=== PATIENT | female | born 1990 | race Caucasian/White ===

== ENCOUNTER 2018-08-25 17:10 | Emergency (ER) | payer MEDICAID ==
--- NOTE | 2018-08-25 17:23 | EDM.PDOC ---
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 Developed approximately 2 hours ago some pressure to the vagina region with increasing pain, decrease amount, and blood present with urination. She has a long history of UTIs but notes the current symptoms are quite severe in comparison to previous episodes. It is unclear she states where the blood is coming from. She states her last menstrual cycle was in June. She took a home test that came back positive. She has traveled from [place] to [place] to spend time with family and had no issues during her travel. She also complains some bilateral low back discomfort. There is no fever, nausea or vomiting as of today, diarrhea, or constipation. She has a history of STDs. She is currently in the office relationship. She's had to person via with no complications. She has been mildly nauseated with the thus has been taking Zofran are intermittent basis. She is on vitamins. Smokes 2 cigarettes a day. No recreational drug use. Denies any alcohol use. Abdominal Pain Score (Numeric/FACES): 7 - Related Data Allergies Allergy/AdvReac Type Severity Reaction Status Date / Time No Known Allergies Allergy Verified 08/25/18 17:26 Home Meds: Home Meds Ondansetron [Zofran ODT] 4 mg PO Q4H PRN 08/25/18 [History] Pnv No.121/Iron/Folic Acid [ Multivitamin Tablet] 1 tab PO DAILY [History] ED ROS GENERAL - Review of Systems Review Of Systems: ROS reveals no pertinent complaints other than HPI. ED EXAM - Physical Exam Exam: See Below Exam Limited By: No Limitations General Appearance: Alert, WD/WN, Mild Distress Ears: Hearing Grossly Normal Nose: Normal Inspection Throat/Mouth: Normal Voice, No Airway Compromise Head: Atraumatic, Normocephalic Neck: Normal Inspection, Supple Respiratory/Chest: No Respiratory Distress, Lungs Clear, Normal Breath Sounds, No Accessory Muscle Use Cardiovascular: Normal Peripheral Pulses, Regular Rate, Rhythm, No Murmur GI/Abdominal Exam: Normal Bowel Sounds, Soft, No Organomegaly, No Distention, Tender (suprapubic region), Other (No CVA tenderness bilateral. ) (Female) Exam: Normal Bimanual Exam, Normal External Exam, Normal Speculum Exam, Vaginal Discharge (thick creamy). No: Adnexal Mass (L), Adnexal Mass (R) , Adnexal Tenderness, Cervical Dilatation, Vaginal Bleeding, Vaginal Lesions Back Exam: Normal Inspection. No: CVA Tenderness (L), CVA Tenderness (R) Extremities: Normal Inspection Neurological: Alert, Oriented, CN II-XII Intact, Normal Cognition, No Motor/ Sensory Deficits Psychiatric: Normal Affect, Normal Mood Skin Exam: Warm, Dry, Intact, Normal Color Course - Vital Signs Last Recorded V/S: Last Vital Signs Temp 98.2 F 08/25/18 17: Pulse 95 08/25/18 17:19 Resp 19 08/25/18 17:19 BP 131/87 08/25/18 17:19 Pulse Ox 100 08/25/18 17:19 - Orders/Labs/Meds Orders: Active Orders 24 hr Category Date Time Status Peripheral IV Care [RC] . DIRECTED Care 08/25/18 17:25 Active CULTURE URINE [RM] Stat Lab 08/25/18 17:45 Results Peripheral IV Insertion Adult [OM.PC] Routine Oth 08/25/18 17:25 Ordered Labs: Laboratory Tests 08/25/18 08/25/18 08/25/18 Range/Units 17:35 17:35 17:35 WBC 17.94 H (3.98-10.04) K/mm3 RBC 4.46 (3.98-5.22) M/mm3 Hgb 14.2 (11.2-15.7) gm/L Hct 41.7 (34.1-44.9) % MCV 93.5 (79.4-94.8) fl MCH 31.8 (25.6-32.2) pg MCHC 34.1 (32.2-35.5) g/dl RDW Std Deviation 45.2 (36.4-46.3) fL Plt Count 392 H (182-369) K/mm3 MPV 9.2 L (9.4-12.3) fl Neutrophils % (Manual) 76 H (40-60) % Band Neutrophils % 0 (0-10) % Lymphocytes % (Manual) 12 L (20-40) % Atypical Lymphs % 0 % Monocytes % (Manual) 11 H (2-10) % Eosinophils % (Manual) 1 (0.7-5.8) % Basophils % (Manual) 0 L (0.1-1.2) Platelet Estimate Adequate Plt Morphology Comment Normal RBC Morph Comment Normal PT (9.5-12.1) SECONDS INR APTT (24-31) SECONDS Sodium 136 (136-145) mEq/L Potassium 3.7 (3.5-5.1) mEq/L Chloride 102 (98-107) mEq/L Carbon Dioxide 22 (21-32) mEq/L Anion Gap 15.7 H (5-15) BUN 8 (7-18) mg/dL Creatinine 0.7 (0.55-1.02) mg/dL Est Cr Clr Drug Dosing 98.98 mL/min Estimated GFR (MDRD) > 60 (>60) mL/min BUN/Creatinine Ratio 11.4 L (14-18) Glucose 95 (74-106) mg/dL Calcium 9.3 (8.5-10.1) mg/dL Total Bilirubin 0.4 (0.2-1.0) mg/dL AST 20 (15-37) U/L ALT 19 (14-59) U/L Alkaline Phosphatase 69 (46-116) U/L C-Reactive Protein (<1.0) mg/dL Total Protein 8.2 (6.4-8.2) g/dl Albumin 4.2 (3.4-5.0) g/dl Globulin 4.0 gm/dL Albumin/Globulin Ratio 1.1 (1-2) HCG, Quant 46109.0 mIU/mL Urine Color (Yellow) Urine Appearance (Clear) Urine pH (5.0-8.0) Ur Specific [place] (1.005-1.030) Urine Protein (Negative) Urine Glucose (UA) (Negative) Urine Ketones (Negative) Urine Occult Blood (Negative) Urine Nitrite (Negative) Urine Bilirubin (Negative) Urine Urobilinogen (0.2-1.0) Ur Leukocyte Esterase (Negative) Urine RBC (0-5) /hpf Urine WBC (0-5) /hpf Urine WBC Clumps (NOT SEEN) /hpf Ur Epithelial Cells (0-5) /hpf Amorphous Sediment (NOT SEEN) /hpf Urine Bacteria (FEW) /hpf Urine Mucus (FEW) /hpf C trachomatis DNA (PCR) N gonorrhoeae DNA (PCR) Blood Type O POSITIVE 08/25/18 08/25/18 08/25/18 Range/Units 17:35 17:35 17:45 WBC (3.98-10.04) K/mm3 RBC (3.98-5.22) M/mm3 Hgb (11.2-15.7) gm/L Hct (34.1-44.9) % MCV (79.4-94.8) fl MCH (25.6-32.2) pg MCHC (32.2-35.5) g/dl RDW Std Deviation (36.4-46.3) fL Plt Count (182-369) K/mm3 MPV (9.4-12.3) fl Neutrophils % (Manual) (40-60) % Band Neutrophils % (0-10) % Lymphocytes % (Manual) (20-40) % Atypical Lymphs % % Monocytes % (Manual) (2-10) % Eosinophils % (Manual) (0.7-5.8) % Basophils % (Manual) (0.1-1.2) Platelet Estimate Plt Morphology Comment RBC Morph Comment PT 10.4 (9.5-12.1) SECONDS INR 0.95 APTT 31 (24-31) SECONDS Sodium (136-145) mEq/L Potassium (3.5-5.1) mEq/L Chloride (98-107) mEq/L Carbon Dioxide (21-32) mEq/L Anion Gap (5-15) BUN (7-18) mg/dL Creatinine (0.55-1.02) mg/dL Est Cr Clr Drug Dosing mL/min Estimated GFR (MDRD) (>60) mL/min BUN/Creatinine Ratio (14-18) Glucose (74-106) mg/dL Calcium (8.5-10.1) mg/dL Total Bilirubin (0.2-1.0) mg/dL AST (15-37) U/L ALT (14-59) U/L Alkaline Phosphatase (46-116) U/L C-Reactive Protein < 0.2 (<1.0) mg/dL Total Protein (6.4-8.2) g/dl Albumin (3.4-5.0) g/dl Globulin gm/dL Albumin/Globulin Ratio (1-2) HCG, Quant mIU/mL Urine Color Red H (Yellow) Urine Appearance Turbid H (Clear) Urine pH 5.0 (5.0-8.0) Ur Specific [place] 1.015 (1.005-1.030) Urine Protein 3+ H (Negative) Urine Glucose (UA) 1+ H (Negative) Urine Ketones 1+ H (Negative) Urine Occult Blood 3+ H (Negative) Urine Nitrite Positive H (Negative) Urine Bilirubin 3+ H (Negative) Urine Urobilinogen >=8.0 H (0.2-1.0) Ur Leukocyte Esterase 3+ H (Negative) Urine RBC >100 H (0-5) /hpf Urine WBC 75-100 H (0-5) /hpf Urine WBC Clumps Few (NOT SEEN) /hpf Ur Epithelial Cells 0-5 (0-5) /hpf Amorphous Sediment Moderate H (NOT SEEN) /hpf Urine Bacteria Moderate H (FEW) /hpf Urine Mucus Not seen (FEW) /hpf C trachomatis DNA (PCR) N gonorrhoeae DNA (PCR) Blood Type 08/25/18 Range/Units 20:54 WBC (3.98-10.04) K/mm3 RBC (3.98-5.22) M/mm3 Hgb (11.2-15.7) gm/L Hct (34.1-44.9) % MCV (79.4-94.8) fl MCH (25.6-32.2) pg MCHC (32.2-35.5) g/dl RDW Std Deviation (36.4-46.3) fL Plt Count (182-369) K/mm3 MPV (9.4-12.3) fl Neutrophils % (Manual) (40-60) % Band Neutrophils % (0-10) % Lymphocytes % (Manual) (20-40) % Atypical Lymphs % % Monocytes % (Manual) (2-10) % Eosinophils % (Manual) (0.7-5.8) % Basophils % (Manual) (0.1-1.2) Platelet Estimate Plt Morphology Comment RBC Morph Comment PT (9.5-12.1) SECONDS INR APTT (24-31) SECONDS Sodium (136-145) mEq/L Potassium (3.5-5.1) mEq/L Chloride (98-107) mEq/L Carbon Dioxide (21-32) mEq/L Anion Gap (5-15) BUN (7-18) mg/dL Creatinine (0.55-1.02) mg/dL Est Cr Clr Drug Dosing mL/min Estimated GFR (MDRD) (>60) mL/min BUN/Creatinine Ratio (14-18) Glucose (74-106) mg/dL Calcium (8.5-10.1) mg/dL Total Bilirubin (0.2-1.0) mg/dL AST (15-37) U/L ALT (14-59) U/L Alkaline Phosphatase (46-116) U/L C-Reactive Protein (<1.0) mg/dL Total Protein (6.4-8.2) g/dl Albumin (3.4-5.0) g/dl Globulin gm/dL Albumin/Globulin Ratio (1-2) HCG, Quant mIU/mL Urine Color (Yellow) Urine Appearance (Clear) Urine pH (5.0-8.0) Ur Specific [place] (1.005-1.030) Urine Protein (Negative) Urine Glucose (UA) (Negative) Urine Ketones (Negative) Urine Occult Blood (Negative) Urine Nitrite (Negative) Urine Bilirubin (Negative) Urine Urobilinogen (0.2-1.0) Ur Leukocyte Esterase (Negative) Urine RBC (0-5) /hpf Urine WBC (0-5) /hpf Urine WBC Clumps (NOT SEEN) /hpf Ur Epithelial Cells (0-5) /hpf Amorphous Sediment (NOT SEEN) /hpf Urine Bacteria (FEW) /hpf Urine Mucus (FEW) /hpf C trachomatis DNA (PCR) Not detected N gonorrhoeae DNA (PCR) Not detected Blood Type Meds: Medications Discontinued Medications Generic Name Dose Route Start Last Admin Trade Name Freq PRN Reason Stop Dose Admin Hydromorphone HCl 0.25 mg 08/25/18 17:35 08/25/18 17:54 Dilaudid IVPUSH 08/25/18 17:36 0.25 mg ONETIME ONE Administration Sodium Chloride 1,000 mls @ 999 mls/hr 08/25/18 17:43 08/25/18 17:51 Normal Saline IV 08/25/18 18:43 999 mls/hr ONETIME ONE Administration Ceftriaxone Sodium 1 gm/ 100 mls @ 200 mls/hr 08/25/18 19:18 08/25/18 19:32 Sodium Chloride IV 08/25/18 19:47 200 mls/hr ONETIME ONE Administration Nitrofurantoin Macrocrystals 100 mg 08/25/18 19:18 08/25/18 19:32 Macrobid PO 08/25/18 19:19 100 mg ONETIME ONE Administration Nitrofurantoin Macrocrystals 100 mg 08/25/18 19:52 08/25/18 19:58 Macrobid PO 08/25/18 19:53 100 mg ONETIME ONE Administration Ondansetron HCl 4 mg 08/25/18 19:52 08/25/18 19:58 Zofran IVPUSH 08/25/18 19:53 4 mg ONETIME ONE Administration Phenazopyridine HCl 95 mg 08/25/18 17:36 08/25/18 17:54 Urinary Pain Relief PO 08/25/18 17:37 95 mg ONETIME ONE Administration Sodium Chloride 10 ml 08/25/18 17:25 08/25/18 17:54 Saline Flush FLUSH 10 ml ASDIRECTED PRN Administration Keep Vein Open - Re-Assessments/Exams Free Text/Narrative Re-Assessment/Exam: IV established with dilaudid 0.25mg IVP and pyridium 95mg PO. Initial labs will include: CBC, chem 14, hCG quantitative, coag studies, ABO/Rh type. In addition I discussed with the patient obtaining a vaginal exam to clarify where the blood is coming from. 08/25/18 19:21 IV established with dilaudid 0.25mg IVP and pyridium 95mg PO. Initial labs will include: CBC, chem 14, hCG quantitative, coag studies, ABO/Rh type. In addition I discussed with the patient obtaining a vaginal exam to clarify where the blood is coming from. Labs reviewed: White cell count 17.94, hemoglobin normal. Blood count 392. Neutrophil percentage is slightly elevated at 76 with no left shift. Sodium 136 , potassium 3.7. EKG 15.7. Creatinine 0.7. HCG quantitative 97,605. CRP is pending. UA revealed color red, para is turbid, 3+ protein, glucose 1+, ketones 1+, occult blood 3+, positive nitrates, bilirubin 3+, urine urobilinogen greater than 8, leukocyte esterase 3+, urine rbc's greater 100, urine wbc's 75-100, urine RBC clumps few, amorphous sediment moderate, urine bacteria many. Mucous not seen. Initially patient reported she had not take anything for the discomfort. I did speak to lab in relation to the abnormal UA. They suspect patient has taken high radium or Azo. On further investigation patient has taken a form a Azo prior to admission. Urine results are skewed. Based on her history of present illness and examination I suspect patient has a urinary tract infection. Ordered Rocephin 1 g IV and also Macrobid 100 mg by mouth. 08/25/18 19:44 Wet prep was negative. 08/25/18 19:52 Reassessment, patient has vomited times one. She just received the Macrobid 100 mg by mouth 10 minutes prior to the episode of emesis. Patient believes it is because she has not eaten this afternoon. I have ordered Zofran 4 mg IVP. Patient was notified she cannot keep liquids, fluids, and medications down she'll be admitted to the hospital. Another macrobid 100mg PO has been ordered. Patient has had both macrobid and keflex in the past for UTI. This was quite some time ago. 08/25/18 20:35 Reassessment, patients nausea has improved. She has been able to keep liquids and crackers down with no issues. She did receive the Macrobid 100 mg by mouth again. Patient has been feeling warm. Temperature was rechecked and she was afebrile. I offered to admit the patient to the hospital for treatment for complicated UTI. Patient refuses and would like to go home. Return precautions were discussed with the patient. She voiced understanding. Discharge instructions as documented. Patient does not need a prescription for Zofran. She has this medication at home. 08/26/18 09:29 G/C Negative. Departure - Departure Time of Disposition: 19:31 Disposition: Home, Self-Care 01 Condition: Good Clinical Impression: Cystitis UTI (urinary tract infection) Qualifiers: Urinary tract infection type: acute cystitis Hematuria presence: with hematuria Qualified Code(s): N30.01 - Acute cystitis with hematuria - Discharge Information Instructions: and Urinary Tract Infection Referrals: PCP,None [Primary Care Provider] - Forms: ED Department Discharge Additional Instructions: You have a UTI clinically based on history and physical examination. Unfortunately the urine test is skewed since taking over the counter azo. You will be treated with extended course of macrobid 100mg PO BID for 10days since being . In addition will have you use norco 1 tab q6hrs prn pain. Do not drive this evening since receiving a sedative medication and or while taking the norco. If symptoms worsen please return to the E.D. for reevaluation and treatment. Since being you are at increased risk of developing a kidney infection putting both you and the fetus in harm. Push the fluids. Culture of the urine has been obtained. This maybe skewed as well with taking the azo. If it grows bacteria not covered by the macrobid you will be notified. Use the Zofran as prescribed for nausea and vomiting. - My Orders Last 24 Hours: My Active Orders 08/25/18 17:25 Peripheral IV Care [RC] . DIRECTED Peripheral IV Insertion Adult [OM.PC] Routine 08/25/18 17:45 CULTURE URINE [RM] Stat - Assessment/Plan Last 24 Hours: My Active Orders 08/25/18 17:25 Peripheral IV Care [RC] . DIRECTED Peripheral IV Insertion Adult [OM.PC] Routine 08/25/18 17:45 CULTURE URINE [RM] Stat
[2018-08-25] MEDS ORDERED: Sodium Chloride 0.9% 10 ML Syringe FLUSH PRN (17:25)
[2018-08-25] MEDS ORDERED: HYDROmorphone 0.5 MG/0.5 ML Syringe IVPUSH ONE (17:35)
[2018-08-25] MEDS ORDERED: Phenazopyridine 95 MG Tab PO ONE (17:36)
[2018-08-25] MEDS ORDERED: Sodium Chloride 0.9% 1,000 ML IV ONE (17:43)
[2018-08-25] MEDS ORDERED: Nitrofurantoin Monohydrate/Macrocrystalline 100 MG Cap PO ONE ×2 (19:18→19:52)
[2018-08-25] MEDS ORDERED: cefTRIAXone 1 GM in Sodium Chloride 0.9% 100 ML IV ONE (19:18)
[2018-08-25] MEDS ORDERED: Ondansetron 4 MG/2 ML SDV IVPUSH ONE (19:52)
[2018-08-25 22:30] LABS: C. TRACHOMATIS BY PCR NOT DETECTED; N. GONORRHOEAE BY PCR NOT DETECTED
== END 2018-08-25 20:49 | disposition home or self-care (01) ==
LOC: JD.ED 17:10
DX: O23.11 Infections of bladder in pregnancy, first trimester (principal); O99.331 Smoking (tobacco) complicating pregnancy, first trimester; F17.210 Nicotine dependence, cigarettes, uncomplicated; Z3A.08 8 weeks gestation of pregnancy
CPT/HCPCS: 36415; 80053; 81001; 84702; 85007; 85027; 85610; 85730; 86140; 86900; 86901; 87086; 87210; 87491; 87591; 87808; 96361; 96365; 96375; 99283; A9270; J0696; J1170; J2405; J7030; J7040; 87088; 99284